=== PATIENT | male | born 1975 | race Caucasian/White ===

== ENCOUNTER 2016-08-14 13:14 | Emergency (ER) | payer OTHER | END 2016-08-14 15:34 | disposition home or self-care (01) | LOC: ER 13:14 | DX: S33.5XXA Sprain of ligaments of lumbar spine, initial encounter (principal); X50.3XXA Overexertion from repetitive movements, initial encounter; Y93.H1 Activity, digging, shoveling and raking; Y92.828 Other wilderness area as the place of occurrence of the external cause; F17.210 Nicotine dependence, cigarettes, uncomplicated | CPT/HCPCS: 72100; 96372; 99283-25 ==